=== PATIENT | male | born 1970 | race Asian ===

== ENCOUNTER 2017-04-01 07:55 | Day surgery (SDC) | payer OTHER ==
[2017-04-01] VITALS (13 sets, daily range): BP systolic 100–156; BP diastolic 69–97; PULSE 68–78; RESP 14–20; Ht 180.3 cm; Wt 78.0 kg
[~2017-04-01] VITALS: Ht 180.3 cm; Wt 78.0 kg
[2017-04-01] MEDS ORDERED: LIDOCAINE 2% (SDV) 5 ML INJ ONE ×2 (08:02→10:38)
[2017-04-01] MEDS ORDERED: LIDOCAINE 1% (MPF) 10 ML INJ ONE (08:02)
[2017-04-01] MEDS ORDERED: BUPIVACAINE 0.75% (MPF) 10 ML INJ ONE (08:02)
[2017-04-01] MEDS ORDERED: CARBACHOL 0.01% 1.5 ML OPH INJ ONE (08:02)
[2017-04-01] MEDS ORDERED: EPINEPHrine 1 MG INJ ONE (08:03)
[2017-04-01] MEDS ORDERED: TIMOLOL 0.5% 5 ML OPH ONE (08:03)
[2017-04-01] MEDS ORDERED: AMLO5TAB4 PO (08:32)
[2017-04-01] MEDS: PHENYLephrine 10% 5 ML OPH OPER SCH ×2 (08:59→11:16)
[2017-04-01] MEDS: MOXIFLOXACIN 0.5% 3 ML OPH OPER SCH ×2 (08:59→11:17)
[2017-04-01] MEDS ORDERED: CYCLOPENTOLATE 2% 2 ML OPH OPER SCH (09:00)
[2017-04-01] MEDS ORDERED: NEPAFENAC 0.1% 3 ML OPH OPER SCH (09:00)
[2017-04-01] MEDS ORDERED: ONDANSETRON 4 MG INJ IV PRN (10:00)
[2017-04-01] MEDS ORDERED: morphine (1 MG/ML) 10ML SYRINGE IV PRN ×3 (10:00)
[2017-04-01] MEDS ORDERED: FENTAnyl 50 MCG/ML VIAL IV PRN ×2 (10:00)
[2017-04-01] MEDS ORDERED: MEPERIDINE 25 MG INJ IV PRN (10:00)
[2017-04-01] MEDS ORDERED: DIPHENHYDRAMINE 50 MG INJ IV PRN (10:00)
--- NOTE | 2017-04-01 10:01 | HPN ---
Date/Time of Note Date/Time of Note DATE: 04/01/17 TIME: 10:01 Interval H&P Admission Note Pt. seen H&P reviewed: No system changes MARLYN ANDREWS MD Apr 01, 2017 10:01
[2017-04-01] MEDS ORDERED: SUCCINYLCHOLINE CHLORIDE 100 MG/5 ML SYG IV ONE (10:38)
[2017-04-01] MEDS ORDERED: ROCURONIUM 50 MG INJ ONE (10:38)
[2017-04-01] MEDS ORDERED: SUGAMMADEX SODIUM 200 MG/2 ML VIAL IV ONE (10:38)
[2017-04-01] MEDS ORDERED: PROPOFOL 20 ML ONE (10:38)
[2017-04-01] MEDS ORDERED: LABETALOL HCL 20MG INJ ONE (10:40)
[2017-04-01] MEDS ORDERED: TIMOLOL 0.5% 5 ML OPH LEFT EYE ONE (11:17)
--- NOTE | 2017-05-06 13:30 | OPR ---
DATE OF OPERATION: 04/01/2017 SURGEON: Rosi Barry MD PHARMACEUTICAL LABORATORY TECHNICIAN: None. ANESTHESIOLOGIST: PREOPERATIVE DIAGNOSIS: Senile nuclear sclerotic cataract, left eye. POSTOPERATIVE DIAGNOSIS: Senile nuclear sclerotic cataract, left eye. OPERATION: Kelman phacoemulsification with implantation of intraocular lens, left eye. PROCEDURE: Following standard preparation and draping of the patient, an aspirating lid speculum was placed for immobilization of the lids. A Superblade incision was made for access into the anterior chamber. Approximately 0.5 ml of 1% unpreserved Xylocaine was instilled into the anterior chamber, and after approximately 15 seconds, this was replaced with Viscoat. A clear corneal incision was then made using the 3.2 mm keratome, following which an anterior circular capsulorrhexis was made. The major portion of the lens cortex and nucleus was then dislocated from the capsular bag using hydrodissection. The KPE tip was introduced into the eye, and controlling movements of the lens with a two-handed technique, the major portion of the lens cortex and nucleus was removed, maintaining the lens in the plane of the iris. The remaining cortical material was removed via the irrigating-aspirating instrument. The capsular bag and the anterior chamber were re-formed using Viscoat. The proper power lens was then placed within the capsular bag. The viscoelastic was then removed from the eye and the eye re-formed with balanced salt solution. One 10-0 Vicryl suture was then used to ensure closure of the corneal incision. The eye was re-formed to normal pressure using balanced salt solution. The eye and cul-de-sacs were now simply flooded with 5% Betadine solution. One drop of Vigamox and one drop of Betagan solution were instilled into the eye. A light pressure dressing was applied, and the patient was returned to the recovery room in satisfactory condition. Dictated By: Rosi Barry MD /hailee/nicole /Document#: [id number]
== END 2017-04-01 12:50 | disposition home or self-care (01) ==
LOC: SDS 07:55
PROVIDERS: ATTEND Ophthalmology
DX: H25.12 Age-related nuclear cataract, left eye (principal); I10 Essential (primary) hypertension
CPT/HCPCS: 66984; J0171; J2175; J2405; J7999; Z7512; Z7610

== ENCOUNTER 2017-07-01 08:19 | Day surgery (SDC) | payer OTHER ==
[2017-07-01] VITALS (11 sets, daily range): BP systolic 123–148; BP diastolic 80–96; PULSE 67–82; RESP 16–18; Ht 180.3 cm; Wt 79.8 kg
[~2017-07-01] VITALS: Ht 180.3 cm; Wt 79.8 kg
[~2017-07-01 08:19] MED LIST: AMLO5TAB4 PO; ATROPINE 1 MG/10 ML SYRINGE IV PRN; DIPHENHYDRAMINE 50 MG INJ IV PRN; EPHEDrine SULFATE 50 MG/5 ML SYG IV PRN; FENTAnyl 50 MCG/ML VIAL IV PRN; HYDROmorphONE (0.2 MG/ML) 10ML SYG IV PRN; LABETALOL HCL 20MG INJ IV PRN; MEPERIDINE 25 MG INJ IV PRN; MIDAZOLAM 1 MG/ML 2 ML INJ IV PRN; ONDANSETRON 4 MG INJ IV PRN; OXYCODONE/ACETAMINOPHEN (5/325) TAB PO PRN; hydrALAzine 20 MG INJ IV PRN; morphine (1 MG/ML) 10ML SYRINGE IV PRN
--- NOTE | 2017-07-01 08:29 | HPN ---
Date/Time of Note Date/Time of Note DATE: 07/01/17 TIME: 08:29 Interval H&P Admission Note Pt. seen H&P reviewed: No system changes MARLYN ANDREWS MD Jul 01, 2017 08:29
[2017-07-01] MEDS ORDERED: LOSA50TA6 PO (08:47)
[2017-07-01] MEDS ORDERED: SIMV20TA PO (08:47)
[2017-07-01] MEDS ORDERED: MOXIFLOXACIN 0.5% 3 ML OPH OPER SCH (09:30)
[2017-07-01] MEDS ORDERED: CYCLOPENTOLATE 2% 2 ML OPH OPER SCH (09:30)
[2017-07-01] MEDS ORDERED: NEPAFENAC 0.1% 3 ML OPH OPER SCH (09:30)
[2017-07-01] MEDS ORDERED: PHENYLephrine 10% 5 ML OPH OPER SCH (09:30)
[2017-07-01] MEDS ORDERED: LACTATED RINGER'S 1,000 ML IV SCH (09:30)
[2017-07-01] MEDS ORDERED: CARBACHOL 0.01% 1.5 ML OPH INJ ONE (10:34)
[2017-07-01] MEDS ORDERED: TIMOLOL 0.5% 5 ML OPH ONE (10:34)
[2017-07-01] MEDS ORDERED: EPINEPHrine 1 MG INJ ONE (10:51)
[2017-07-01] MEDS ORDERED: SODIUM BICARBONATE (IV ADD) 50 ML ONE (10:51)
[2017-07-01] MEDS ORDERED: LIDOCAINE 100 MG SYRINGE ONE (10:51)
[2017-07-01] MEDS ORDERED: LIDOCAINE 1% (MPF) 10 ML INJ ONE (10:51)
[2017-07-01] MEDS ORDERED: PROPOFOL 20 ML ONE ×2 (10:51→11:04)
[2017-07-01] MEDS ORDERED: BUPIVACAINE 0.75% (MPF) 10 ML INJ ONE (10:51)
[2017-07-01] MEDS ORDERED: LIDOCAINE 2% (SDV) 5 ML INJ ONE ×2 (10:52→11:04)
[2017-07-01] MEDS ORDERED: GLYCOPYRROLATE 0.4 MG INJ ONE (11:04)
[2017-07-01] MEDS ORDERED: ROCURONIUM 50 MG INJ ONE (11:04)
[2017-07-01] MEDS ORDERED: MIDAZOLAM 1 MG/ML 2 ML INJ ONE (11:04)
[2017-07-01] MEDS ORDERED: NEOSTIGMINE 3 MG/3 ML SYRINGE ONE (11:04)
[2017-07-01] MEDS ORDERED: FENTAnyl 50 MCG/ML VIAL ONE (11:05)
[2017-07-01] MEDS ORDERED: ONDANSETRON 4 MG INJ ONE (11:05)
[2017-07-01] MEDS ORDERED: DEXAMETHASONE 4 MG/ML 1 ML INJ ONE (11:06)
[2017-07-01] MEDS ORDERED: SUGAMMADEX SODIUM 200 MG/2 ML VIAL IV ONE (11:16)
[2017-07-01] MEDS ORDERED: LABETALOL HCL 20MG INJ ONE (11:17)
[2017-07-01] MEDS ORDERED: PHENYLephrine 10% 5 ML OPH RIGHT EYE ONE (11:20)
[2017-07-01] MEDS ORDERED: TIMOLOL 0.5% 5 ML OPH RIGHT EYE ONE (11:45)
--- NOTE | 2017-07-01 11:50 | SIPON ---
Date/Time of Note Date/Time of Note DATE: 07/01/17 TIME: 11:44 Operative Report Preoperative Diagnosis cataract right eye Postoperative Diagnosis same Operation/Procedure Performed cataract extraction with lens implant Surgeon see signature line medical assistant none Anesthesia: general Estimated blood loss: none Transfusion Required none Specimen no Grafts/Implants posterior chamber lensnone Complications none MARLYN ANDREWS MD Jul 01, 2017 11:50
[2017-07-01] MEDS ORDERED: morphine 2 MG INJ ONE (12:34)
--- NOTE | 2017-07-09 15:24 | OPR ---
DATE OF OPERATION: 07/01/2017 SURGEON: Marlyn Barry MD RECRUITING ADMINISTRATOR: None. PREOPERATIVE DIAGNOSIS: Senile nuclear sclerotic cataract, right eye. POSTOPERATIVE DIAGNOSIS: Senile nuclear sclerotic cataract, right eye. OPERATION: Kelman phacoemulsification with implantation of intraocular lens right eye. DESCRIPTION OF PROCEDURE: Following standard preparation and draping of the patient, a lid speculum was placed for immobilization of the lids. A SuperBlade incision was made at the corneal limbal ju nction for access into the anterior chamber. Approximately 0.03 mL of nonpreserved 1% Xylocaine was instilled into the anterior chamber, and after approximately 5 to 10 seconds, this was replaced wit h Viscoat. A clear corneal incision was then made using the 3.2 mm keratome, following which an ant erior circular capsulorrhexis was made. The major portion of the lens cortex and nucleus were then dislocated from the capsular bag using hydrodissection. The KPE tip was introduced into the eye and controlling tumbling of the lens with a 2-handed technique, the major portion of the lens cortex an d nucleus was removed, maintaining the lens in the plane of the iris. The remaining cortical materi al was removed via the irrigating aspirating instrument. The capsular bag and the anterior chamber were now reformed using Viscoat. The proper power lens was then placed in the capsular bag. The vi scoelastic was then removed from the eye and the eye reformed with balanced salt solution. One 10-0 Vicryl suture was then used to ensure closure of the corneal incision. The eye was reformed to nor mal pressure using balanced salt solution. The eye and cul-de-sacs were now simply flooded with 5% Betadine solution. One drop of Vigamox and 1 drop of Betagan solution were instilled into the eye. A light pressure dressing was applied, and the patient was returned to the recovery room in satisfa ctory condition. Dictated By: MARLYN BUCKLEY/CRISTINE Conf#: [id number] DID#: [id number]
== END 2017-07-01 13:46 | disposition home or self-care (01) ==
LOC: SDS 08:19
PROVIDERS: ATTEND Ophthalmology
DX: H25.11 Age-related nuclear cataract, right eye (principal); I10 Essential (primary) hypertension
CPT/HCPCS: 66984; J0171; J1100; J2250; J2270; J2405; J3010; J7120; V2632; Z7512; Z7610; J2001; J2710